=== PATIENT | male | born 1990 | race African-American/Black ===

== ENCOUNTER 2019-05-27 20:26 | Observation (INO) ==
[2019-05-27] MEDS ORDERED: methylPREDNISolone 125 MG/2 ML VIAL IVP ONE (20:36)
[2019-05-27] MEDS ORDERED: Ipratropium/Albuterol Neb 3 ML IH ONE (20:36)
[2019-05-27 21:05] LABS: Basophils # 0.1 K/mcL (0.0-0.2); Basophils % 0.4 %; Eosinophils # 0.8 K/mcL (0.0-0.6); Eosinophils % 6.6 %; Hematocrit 42.3 % (37.5-50.1); Hemoglobin 13.5 g/dL (12.9-16.9); Immature Granulocytes % 0.5 % (0-4); Lymphocytes # 2.8 K/mcL (0.6-4.6); Lymphocytes % 21.9 %; Mean Corpuscular HGB Conc 31.9 g/dL (31.6-35.5); Mean Corpuscular Hemoglobin 26.4 pg (28.0-33.3); Mean Corpuscular Volume 82.8 fL (83.0-100.0); Mean Platelet Volume 9.3 fL (9.4-12.4); Monocytes # 0.7 K/mcL (0.0-1.3); Monocytes % 5.5 %; Neutrophils # 8.2 K/mcL (1.6-8.9); Platelet Count 362 K/mcL (140-400); Red Blood Count 5.11 M/mcL (4.19-5.50); Red Cell Distribution Width 15.1 % (11.5-14.5); Segmented Neutrophils % 65.1 %; White Blood Count 12.6 K/mcL (4.3-11.1)
[2019-05-27] MEDS ORDERED: Ibuprofen 600 MG TABLET PO ONE (21:25)
[2019-05-27 21:30] LABS: BUN/Creatinine Ratio 12 (6-26); Blood Urea Nitrogen 10 mg/dL (6-20); Calcium 9.3 mg/dL (8.6-10.3); Carbon Dioxide 27 mEq/L (23-29); Chloride 102 mEq/L (98-107); Glucose 118 mg/dL (70-105); Osmolality,Calculated 288 (280-300); Potassium 3.9 mEq/L (3.5-5.1); Sodium 139 mEq/L (136-145); Troponin I < 0.03 ng/mL (< 0.04); eGFR For African Americans > 60 (> 60); eGFR For Non-African Americans > 60 (> 60)
[2019-05-27] MEDS ORDERED: Albuterol 2.5 MG/3 ML NEBULIZER IH ONE (21:39)
[2019-05-27] MEDS ORDERED: 0.9 % Sodium Chloride 1,000 ML IV ONE (22:10)
[2019-05-27 22:49] LABS: ABG Base Excess 2 mEq/L (-2 to 3); ABG HCO3 27 mEq/L (21-27); ABG Oxygen Saturation 94 % (95-98); ABG PCO2 44 mmHg (35-45); ABG PO2 73 mmHg (85-104); ABG TCO2 29 mEq/L (20-26)
[2019-05-27] MEDS ORDERED: Naloxone 0.4 MG/ML INJ IVP PRN (23:11)
[2019-05-27] MEDS ORDERED: Azithromycin 500 MG in 0.9 % Sodium Chloride 250 ML IVPB ONE (23:20)
[2019-05-27] MEDS ORDERED: cefTRIAXone 2,000 MG in Water for inj. (sterile) 20 ML IVP SCH (23:45)
[2019-05-28] MEDS: 0.9 % Sodium Chloride 1,000 ML IVC SCH ×3 (01:58→04:14)
[2019-05-28 03:59] LABS: Basophils % 0.2 %; Eosinophils % 0.2 %; Hematocrit 40.9 % (37.5-50.1); Hemoglobin 12.7 g/dL (12.9-16.9); Immature Granulocytes % 0.4 % (0-4); Lymphocytes # 0.8 K/mcL (0.6-4.6); Lymphocytes % 6.8 %; Mean Corpuscular HGB Conc 31.1 g/dL (31.6-35.5); Mean Corpuscular Hemoglobin 26.1 pg (28.0-33.3); Mean Corpuscular Volume 84.2 fL (83.0-100.0); Mean Platelet Volume 9.6 fL (9.4-12.4); Monocytes # 0.1 K/mcL (0.0-1.3); Monocytes % 0.4 %; Neutrophils # 10.8 K/mcL (1.6-8.9); Platelet Count 296 K/mcL (140-400); Red Blood Count 4.86 M/mcL (4.19-5.50); White Blood Count 11.7 K/mcL (4.3-11.1)
[2019-05-28 05:11] LABS: Alanine Aminotransferase 37 Units/L (7-52); Albumin/Globulin Ratio 1.1 (1.1-2.2); Alkaline Phosphatase 109 Units/L (34-104); Aspartate Amino Transferase 24 Units/L (13-39); BUN/Creatinine Ratio 14 (6-26); Bilirubin,Total 0.2 mg/dL (0.3-1.0); Blood Urea Nitrogen 11 mg/dL (6-20); Calcium 8.8 mg/dL (8.6-10.3); Carbon Dioxide 20 mEq/L (23-29); Chloride 105 mEq/L (98-107); Chol/HDL Ratio 5.4 (0-4.9); Cholesterol 201 mg/dL (< 200); Globulin 3.5 g/dL (2.4-3.5); Glucose 200 mg/dL (70-105); HDL Cholesterol 37 mg/dL (40-59); LDL Cholesterol,Calculated 136 mg/dL (0-99); Magnesium 2.1 mg/dL (1.6-2.6); Osmolality,Calculated 291 (280-300); Phosphorous 1.9 mg/dL (2.7-4.5); Potassium 4.2 mEq/L (3.5-5.1); Sodium 138 mEq/L (136-145); Thyroid Stimulating Hormone 0.289 mcIU/mL (0.340-5.600); Total Protein 7.5 g/dL (6.4-8.9); Triglycerides 139 mg/dL (< 150); eGFR For African Americans > 60 (> 60); eGFR For Non-African Americans > 60 (> 60)
[2019-05-28] MEDS: Albuterol 2.5 MG/3 ML NEBULIZER IH PRN ×3 (05:32→22:27)
[2019-05-28] MEDS: predniSONE 20 MG TABLET PO SCH (08:01)
[2019-05-28 10:43] LABS: Estimated Average Glucose 131 mg/dl
[2019-05-28] MEDS: Acetaminophen 325 MG TABLET PO PRN (22:10)
[2019-05-28] MEDS: Budesonide/Formoterol 160/4.5 1 PUFF INH IH SCH (22:27)
[2019-05-29] MEDS ORDERED: Azithromycin 500 MG in 0.9 % Sodium Chloride 250 ML IVPB SCH (02:00)
[2019-05-29 05:49] LABS: Basophils % 0.2 %; Eosinophils # 0.3 K/mcL (0.0-0.6); Eosinophils % 1.8 %; Hemoglobin 12.1 g/dL (12.9-16.9); Immature Granulocytes % 0.6 % (0-4); Lymphocytes % 27.9 %; Mean Corpuscular HGB Conc 32.7 g/dL (31.6-35.5); Mean Corpuscular Hemoglobin 26.5 pg (28.0-33.3); Mean Platelet Volume 10.1 fL (9.4-12.4); Monocytes # 1.1 K/mcL (0.0-1.3); Monocytes % 7.8 %; Neutrophils # 8.7 K/mcL (1.6-8.9); Platelet Count 309 K/mcL (140-400); Red Blood Count 4.57 M/mcL (4.19-5.50); Red Cell Distribution Width 15.7 % (11.5-14.5); Segmented Neutrophils % 61.7 %; White Blood Count 14.2 K/mcL (4.3-11.1)
[2019-05-29] MEDS: Budesonide/Formoterol 160/4.5 1 PUFF INH IH SCH (08:09)
[2019-05-29] MEDS: Albuterol 2.5 MG/3 ML NEBULIZER IH PRN (08:09)
[2019-05-29] MEDS: predniSONE 20 MG TABLET PO SCH (08:58)
[2019-05-29] MEDS ORDERED: Lisinopril 20 MG TABLET PO SCH (09:00)
[2019-05-29] MEDS ORDERED: Azithromycin 250 MG TABLET PO SCH (10:45)
[2019-05-29] MEDS: Acetaminophen 325 MG TABLET PO PRN (13:42)
[2019-05-29 15:53] VITALS: BP 185/81
[2019-05-29] MEDS ORDERED: Budesonide/Formoterol 80/4.5 1 PUFF INH IH SCH (22:00)
[2019-05-30 04:55] LABS: Acinetobacter baumannii by PCR Not Detected (Not Detect); Candida albicans by PCR Not Detected (Not Detect); Candida glabrata by PCR Not Detected (Not Detect); Candida krusei by PCR Not Detected (Not Detect); Candida parapsilosis by PCR Not Detected (Not Detect); Candida tropicalis by PCR Not Detected (Not Detect); Enterobacter cloacae Cmplx PCR Not Detected (Not Detect); Enterobacteriaceae by PCR Not Detected (Not Detect); Enterococcus by PCR Not Detected (Not Detect); Escherichia coli by PCR Not Detected (Not Detect); Klebsiella oxytoca by PCR Not Detected (Not Detect); Klebsiella pneumoniae by PCR Not Detected (Not Detect); Proteus by PCR Not Detected (Not Detect); Pseudomonas aeruginosa by PCR Not Detected (Not Detect); Serratia marcescens by PCR Not Detected (Not Detect); Staphylococcus aureus by PCR Not Detected (Not Detect); Staphylococcus by PCR DETECTED (Not Detect); Streptococcus agalactiae(B)PCR Not Detected (Not Detect); Streptococcus by PCR Not Detected (Not Detect); Streptococcus pneumoniae PCR Not Detected (Not Detect); Streptococcus pyogenes (A) PCR Not Detected (Not Detect); mecA Methicillin-Resist Gene Not Detected (Not Detect)
== END 2019-05-29 16:23 | disposition home or self-care (01) ==
LOC: EMEROOARM 20:26 → 3BNU 20:26
PROVIDERS: ADMIT Family Medicine; ATTEND Family Medicine